=== PATIENT | female | born 1985 | race Asian ===

== ENCOUNTER 2017-02-19 | Inpatient (IN) | payer OTHER ==
[2017-02-19] MEDS: ELECTROLYTE-148 SOLN 1,000 ML IV SCH ×3 (01:10→06:00)
--- NOTE | 2017-02-19 01:38 | HP ---
Past Medical History - Admission Chief Complaint: Labor pain History of Present Illness: 31 yo @ 40 weeks gestation, EDC 02/19/17, presents c/o labor pain. She denies any vaginal bleeding nor ROM. History Source: Patient Limitations to Obtaining History: No Limitations - Past Medical History ...: 2 ...Para: 1 ...EDC by Sono: 02/19/17 - Past Surgical History Past Surgical History: Yes: None Hx Myomectomy: No Hx Transabdominal Cerclage: No - Alcohol/Substance Use Hx Alcohol Use: No History of Substance Use: reports: None - Social History Usual Living Arrangement: Yes: With Spouse Home Medications - Allergies Allergies/Adverse Reactions: Allergies Allergy/AdvReac Type Severity Reaction Status Date / Time No Known Allergies Allergy Verified 02/19/17 00:52 - Home Medications Home Medications: Ambulatory Orders Vitamins (Sjr) - 1 tab PO DAILY 02/19/17 Family Disease History - Family Disease History Family History: Unremarkable Review of Systems - Review of Systems Constitutional: reports: No Symptoms Eyes: reports: No Symptoms HENT: reports: No Symptoms Neck: reports: No Symptoms Cardiovascular: reports: No Symptoms Respiratory: reports: No Symptoms Gastrointestinal: reports: No Symptoms Genitourinary: reports: Pain Breasts: reports: No Symptoms Reported Musculoskeletal: reports: No Symptoms Integumentary: reports: No Symptoms Neurological: reports: No Symptoms Endocrine: reports: No Symptoms Hematology/Lymphatic: reports: No Symptoms Pain Intensity: 7 Physical Exam - Maternity Constitutional: Yes: Well Nourished Eyes: Yes: Conjunctiva Clear HENT: Yes: Atraumatic Neck: Yes: Supple Cardiovascular: Yes: Regular Rate and Rhythm Lungs: Clear to auscultation Breast(s): Yes: WNL - Abdominal Exam/OB Number of Fetuses: Single Presentation: Vertex Contractions: Yes Regularity: Irregular Intensity: Moderate - Vaginal Exam/OB Vaginal Bleediing: No Dilatation (cm): 5 Effacement (%): 90 Amniotic Membrane Status: Intact Station: -1 - Physical Exam ...Motor Strength: WNL Psychiatric: Yes: Alert, Oriented Problem List - Problems (1) Pain during labor Code(s): O99.89 - OTH DISEASES AND CONDITIONS COMPL PREG/CHLDBRTH; R52 - PAIN, UNSPECIFIED Assessment/Plan Active labor Admit to L&D Analgesia as needed Anticipate
[2017-02-19] MEDS ORDERED: OXYTOCIN 15 UNITS/ LR 250 ML 15 UNIT/250 ML INFUS.BAG IVPB SCH (01:45)
[2017-02-19] MEDS ORDERED: AMPICILLIN - 2 GM in SODIUM CHLORIDE 100 ML IVPB ONE (01:45)
[2017-02-19 01:52] LABS: BASO % 0.4 % (0-2.0); EOS % 0.6 % (0-4.5); HEMATOCRIT 36.5 % (32.4-45.2); HEMOGLOBIN 11.9 GM/dL (10.7-15.3); LYMPH % 18.9 % (8-40); MCH 27.7 pg (25.7-33.7); MCHC 32.7 g/dl (32.0-36.0); MEAN CELL VOLUME 84.6 fl (80-96); MEAN PLT VOLUME 9.9 fl (7.5-11.1); MONO % 6.6 % (3.8-10.2); NEUT % 73.5 % (42.8-82.8); PLATELET COUNT 177 K/MM3 (134-434); RBC 4.32 M/mm3 (3.60-5.2); RDW 15.6 % (11.6-15.6); WHITE BLOOD COUNT 10.7 K/mm3 (4.0-10.0)
[2017-02-19 02:05] LABS: INR 0.86 (0.82-1.09); PROTHROMBIN TIME (PATIENT) 9.7 SEC (9.98-11.88)
[2017-02-19 02:08] LABS: ACTIVATED PTT 24.1 SECONDS (26.9-34.4)
[2017-02-19 02:11] LABS: ANION GAP 12 (8-16); BLOOD UREA NITROGEN 11 mg/dL (7-18); CALCIUM 8.9 mg/dL (8.5-10.1); CHLORIDE 102 mmol/L (98-107); CO2 24 mmol/L (21-32); CREATININE 0.5 mg/dL (0.55-1.02); GLUCOSE,RANDOM 100 mg/dL (74-106); POTASSIUM 3.7 mmol/L (3.5-5.1); SODIUM 138 mmol/L (136-145)
[2017-02-19] MEDS ORDERED: AMPICILLIN SODIUM 2 GM VIAL ONE (02:49)
[2017-02-19 02:55] VITALS: BMI 27.6
[2017-02-19] MEDS ORDERED: BUTORPHANOL TARTRATE 1 MG/ML VIAL ONE (03:13)
[2017-02-19] MEDS ORDERED: PROMETHAZINE HCL 25 MG/1 ML VIAL ONE (03:13)
[2017-02-19] MEDS ORDERED: BUTORPHANOL TARTRATE 1 MG/ML VIAL IVPB ONE (03:15)
[2017-02-19] MEDS ORDERED: PROMETHAZINE HCL 25 MG/1 ML VIAL IVPB ONE (03:15)
[2017-02-19] MEDS ORDERED: FENTANYL/BUPIVACAINE/NS/PF - PCEA - 50 ML DISP.SYRIN EP ONE (03:45)
[2017-02-19] MEDS ORDERED: NALOXONE HCL 0.4 MG/ML VIAL IVPUSH PRN (04:14)
[2017-02-19] MEDS ORDERED: FENTANYL/BUPIVACAINE/NS/PF - PCEA - 50 ML DISP.SYRIN EP SCH (04:15)
[2017-02-19] MEDS ORDERED: AMPICILLIN SODIUM 1 GM VIAL ONE ×2 (05:35→08:43)
[2017-02-19] MEDS: AMPICILLIN - 1 GM in SODIUM CHLORIDE 100 ML IVPB SCH ×2 (05:45→08:45)
[2017-02-19] MEDS ORDERED: OXYTOCIN 20 UNITS in 0.9% NS 20 UNIT/1,000 ML INFUS.BAG IV ONE ×2 (06:40→10:07)
[2017-02-19] MEDS ORDERED: LIDOCAINE HCL 1% PRESERVATIVE FREE - 30ML VIAL ONE (06:40)
[2017-02-19] MEDS ORDERED: ACETAMINOPHEN 325 MG TABLET (FP) PO PRN (09:10)
[2017-02-19] MEDS ORDERED: WITCH HAZEL 50% (TUCKS) 40 PAD/JAR PAD TP PRN (09:10)
[2017-02-19] MEDS ORDERED: IBUPROFEN 600 MG TABLET (FP) PO PRN (09:10)
[2017-02-19] MEDS ORDERED: BENZOCAINE 28 GM HEMORRHOIDAL OINTMENT TP PRN (09:10)
[2017-02-19] MEDS ORDERED: BENZOCAINE 20% 57 GM BOTTLE TP PRN (09:10)
[2017-02-19] MEDS ORDERED: BISACODYL 10 MG SUPP.RECT RC PRN (09:10)
[2017-02-19] MEDS ORDERED: METHYLERGONOVINE MALEATE 0.2 MG/1 ML AMP IM PRN (09:10)
--- NOTE | 2017-02-19 09:13 | PN ---
Delivery - Delivery Vaginal Delivery: Spontaneous Type of Anesthesia: Epidural Episiotomy/Laceration: 1st degree EBL (cc): 300 Delivery, Single - [place] Feeding Plan Initial Plan: Elected not to breastfeed exclusively throughout hospitalization Remarks - Remarks Remarks: Normal spontaneous vaginal delivery of a live infant over first degree laceration. Nose / Oropharynx suctioned @ perineum. Cord clamped and cut. Placenta expelled spontaneously intact. Laceration repaired with 2.0 Biosyn.
[2017-02-19] MEDS ORDERED: OXYTOCIN 20 UNITS in 0.9% NS 20 UNIT/1,000 ML INFUS.BAG IV SCH (09:15)
[2017-02-19] MEDS: PRENATAL VITAMINS W/ FOLIC ACID TABLET (FP) PO SCH (11:23)
[2017-02-19] MEDS: FERROUS SO4 325 MG TABLET (FP) PO SCH ×2 (11:56→17:11)
--- NOTE | 2017-02-20 06:23 | PN ---
Post Note - Post Date of Delivery: 02/19/17 Vital Signs: Vital Signs - 24 hr 02/19/17 02/19/17 02/19/17 06:30 06:45 07:00 Temperature Pulse Rate 69 68 71 Respiratory 18 18 20 Rate Blood Pressure 105/71 108/65 104/61 O2 Sat by Pulse 100 Oximetry (%) 02/19/17 02/19/17 02/19/17 08:00 09:15 09:30 Temperature 98.0 F Pulse Rate 78 79 75 Respiratory 20 20 20 Rate Blood Pressure 121/74 103/48 99/56 O2 Sat by Pulse Oximetry (%) 02/19/17 02/19/17 02/19/17 09:45 10:00 10:45 Temperature 98.2 F 99 F Pulse Rate 89 78 72 Respiratory 20 79 H 18 Rate Blood Pressure 100/47 100/52 105/56 O2 Sat by Pulse Oximetry (%) 02/19/17 02/19/17 02/19/17 14:00 17:14 22:00 Temperature 98.7 F 97.9 F 97.9 F Pulse Rate 85 86 83 Respiratory 18 20 20 Rate Blood Pressure 95/48 103/56 90/50 O2 Sat by Pulse Oximetry (%) 02/20/17 02:00 Temperature 97.7 F Pulse Rate 77 Respiratory 20 Rate Blood Pressure 92/50 O2 Sat by Pulse Oximetry (%) - Subjective Subjective: No Complaints - Objective Afebrile: No Breast: Not engorged Abdomen: Soft, Non-tender Uterus: Fundus firm, Non-tender Vagina: Scant lochia Extremities: Non-tender - Assessment/Plan (1) (normal spontaneous vaginal delivery) Assessment: S/P Normal Plan: Routine Care
[2017-02-20] MEDS: FERROUS SO4 325 MG TABLET (FP) PO SCH ×3 (08:39→16:50)
[2017-02-20 09:16] LABS: BASO % 0.3 % (0-2.0); EOS % 0.7 % (0-4.5); HEMATOCRIT 34.1 % (32.4-45.2); HEMOGLOBIN 10.7 GM/dL (10.7-15.3); LYMPH % 24.3 % (8-40); MCH 26.7 pg (25.7-33.7); MCHC 31.3 g/dl (32.0-36.0); MEAN CELL VOLUME 85.5 fl (80-96); MEAN PLT VOLUME 9.3 fl (7.5-11.1); MONO % 5.4 % (3.8-10.2); NEUT % 69.3 % (42.8-82.8); PLATELET COUNT 159 K/MM3 (134-434); RBC 3.99 M/mm3 (3.60-5.2); RDW 15.6 % (11.6-15.6); WHITE BLOOD COUNT 12.1 K/mm3 (4.0-10.0)
[2017-02-20] MEDS: PRENATAL VITAMINS W/ FOLIC ACID TABLET (FP) PO SCH (09:49)
[2017-02-20] MEDS ORDERED: DIPHTH,PERTUSS(ACELL),TET 0.5 ML DISP.SYRIN IM ONE (11:50)
[2017-02-20] MEDS ORDERED: SENNOSIDES/DOCUSATE COMBO (SENNA PLUS) TABLET (UD) PO PRN (22:00)
--- NOTE | 2017-02-21 01:07 | DS ---
Physical Exam-[facility] Vital Signs: Vital Signs Temperature 97.4 F L 02/20/17 09:13 Pulse Rate 82 02/20/17 09:13 Respiratory Rate 20 02/20/17 09:13 Blood Pressure 101/66 02/20/17 09:13 O2 Sat by Pulse Oximetry (%) 100 02/19/17 07:00 Constitutional: Yes: Well Nourished Eyes: Yes: Conjunctiva Clear HENT: Yes: Atraumatic Neck: Yes: Supple Cardiovascular: Yes: Regular Rate and Rhythm Respiratory: Yes: Regular Gastrointestinal: Yes: Normal Bowel Sounds Pelvis: Yes: WNL Vaginal Exam: Yes: Bleeding Cervix: Yes: Bleeding Uterus: Yes: Firm ....Post : Yes: Uterus firm, Moderate lochia serosa Breast(s): Yes: WNL Musculoskeletal: Yes: WNL Extremities: Yes: WNL Wound/Incision: Yes: Well Approximated Neurological: Yes: Alert, Oriented ...Motor Strength: WNL Psychiatric: Yes: Alert, Oriented Labs: CBC, BMP 02/20/17 08:30 02/19/17 01:30 Delivery - Delivery Vaginal Delivery: Spontaneous Type of Anesthesia: Epidural Episiotomy/Laceration: 1st degree EBL (cc): 300 Delivery, Single - Stages of Labor Date 1st Stage Initiatied: 02/18/17 Time 1st Stage Initiated: 22:00 Date 2nd Stage Initiated: 02/19/17 Time 2nd Stage Initiated: 06:30 Date of Delivery: 02/19/17 Time of Delivery: 08:57 Time Placenta Delivered: 09:05 - 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 Present: No Infant Gender: Female Weight: 6 lb 9 oz Position: Left, OA Total Hours ROM (Hrs/Mins): 2hrs.27min - 1 Minute Total Score: 9 5 Minutes Total Score: 9 - Feeding Plan Initial Plan: Elected not to breastfeed exclusively throughout hospitalization Discharge Summary Reason For Visit: LABOR Current Active Problems (normal spontaneous vaginal delivery) (Acute) Pain during labor (Acute) Procedures: Principal: Normal spontaneous vaginal delivery Hospital Course: Routine care Condition: Good - Instructions Diet, Activity, Other Instructions: Regular diet No douching, no sexual intercourse x 6 weeks F/U with MD in 6 weeks Disposition: HOME - Home Medications Comprehensive Discharge Medication List: Ambulatory Orders Vitamins ([facility]) - 1 tab PO DAILY 02/19/17
[2017-02-21] MEDS: FERROUS SO4 325 MG TABLET (FP) PO SCH (08:44)
[2017-02-21] MEDS: PRENATAL VITAMINS W/ FOLIC ACID TABLET (FP) PO SCH (09:35)
[2017-02-21 10:46] VITALS: BP 115/77; PULSE 82; TEMP 98.1
== END 2017-02-21 10:10 | disposition home or self-care (01) | DRG 560 ==
LOC: JDEL → JLDR 01:00 → J3W 10:41
PROVIDERS: ADMIT Obstetrics & Gynecology; ATTEND Obstetrics & Gynecology
PROC: 10E0XZZ Delivery of Products of Conception, External Approach (ICD-10-PCS; principal; 2017-02-19)
PROC: 0HQ9XZZ Repair Perineum Skin, External Approach (ICD-10-PCS; 2017-02-19)
PROC: 0W8NXZZ Division of Female Perineum, External Approach (ICD-10-PCS; 2017-02-19)
DX: O70.0 First degree perineal laceration during delivery (principal); Z3A.40 40 weeks gestation of pregnancy; Z37.0 Single live birth
CPT/HCPCS: 36415; 59409; 71046-TC; 80048; 85025; 85610; 85730; 86593; 86850; 86900; 86901; 90715

== ENCOUNTER 2018-06-10 14:29 | Emergency (ER) | payer OTHER ==
--- NOTE | 2018-06-10 14:30 | PDOC ---
History of Present Illness - General Chief Complaint: Pain Stated Complaint: NECK PAIN Time Seen by Provider: 06/10/18 14:30 History Source: Patient Exam Limitations: No Limitations - History of Present Illness Initial Comments: 33 yo F no significant PMH presents with R-sided neck pain. She states it started after she had her first child. She notes that it is worse with raising her R arm overhead. Denies numbness, weakness. Pain is sharp, but not shock- like. She has been evaluated by an orthopedic surgeon in the past, who recommended PT, which she was unable to do, as she was uninsured at the time. She denies any recent injury. Periodically her notices swelling in her neck when he massages it. Past History - Past Medical History Allergies/Adverse Reactions: Allergies Allergy/AdvReac Type Severity Reaction Status Date / Time No Known Allergies Allergy Verified 02/19/17 00:52 Asthma: No Cancer: No Cardiac Disorders: No Diabetes: No HTN: No Seizures: No Thyroid Disease: No - Suicide/Smoking/Psychosocial Hx Smoking History: Never smoked Hx Alcohol Use: No Drug/Substance Use Hx: No Hx Substance Use Treatment: No Review of Systems - Review of Systems Able to Perform ROS?: Yes Comments:: GENERAL/CONSTITUTIONAL: No fever or chills. No weakness. HEAD, EYES, EARS, NOSE AND THROAT: No change in vision. No ear pain or discharge. No sore throat. CARDIOVASCULAR: No chest pain or shortness of breath. RESPIRATORY: No cough, wheezing, or hemoptysis. GASTROINTESTINAL: No nausea, vomiting, diarrhea or constipation. GENITOURINARY: No dysuria, frequency, or change in urination. MUSCULOSKELETAL: No back pain. +Neck pain. +R shoulder pain. SKIN: No rash. NEUROLOGIC: No headache, vertigo, loss of consciousness, or change in strength/ sensation. ENDOCRINE: No increased thirst. No abnormal weight change. HEMATOLOGIC/LYMPHATIC: No anemia, easy bleeding, or history of blood clots. ALLERGIC/IMMUNOLOGIC: No hives or skin allergy. *Physical Exam - Physical Exam Comments: GENERAL: Awake, alert, and fully oriented, in no acute distress HEAD: No signs of trauma EYES: PERRLA, EOMI, sclera anicteric, conjunctiva clear ENT: Auricles normal inspection, hearing grossly normal, nares patent, oropharynx clear without exudates. Moist mucosa NECK: Normal ROM, supple, no lymphadenopathy, JVD, or masses LUNGS: Breath sounds equal, clear to auscultation bilaterally. No wheezes, and no crackles HEART: Regular rate and rhythm, normal S1 and S2, no murmurs, rubs or gallops ABDOMEN: Soft, nontender, normoactive bowel sounds. No guarding, no rebound. No masses EXTREMITIES: Normal range of motion, no edema. No clubbing or cyanosis. No cords, erythema, or tenderness NEUROLOGICAL: Cranial nerves II through XII grossly intact. Normal speech, normal gait. Motor and sensation intact SKIN: Warm, Dry, normal turgor, no rashes or lesions noted. SPINE: +Midline tenderness C5-7. +R sided cervical paraspinal soft tissue tenderness. No masses palpated. Medical Decision Making - Medical Decision Making 06/10/18 14:45 Suspect this is muscle pain. Based on the distribution of the pain, it does not appear to be shoulder impingement. The pain localizes to center of spine, R paraspinal area, and into the R trapezius muscle. Will obtain XR, then likely will give NSAID and muscle relaxer to be used as needed. Ortho f/u. *DC/Admit/Observation/Transfer Diagnosis at time of Disposition: Neck pain - Discharge Dispostion Disposition: HOME Condition at time of disposition: Stable Decision to Admit order: No - Referrals Referrals: Clint Johnson MD [Staff Physician] - - Patient Instructions Printed Discharge Instructions: DI for Neck Pain - Post Discharge Activity
[2018-06-10 14:36] VITALS: BP 120/67; PULSE 80; TEMP 99; BMI 23.8
== END 2018-06-10 15:50 | disposition home or self-care (01) ==
LOC: FER 14:29
DX: M54.2 Cervicalgia (principal)
CPT/HCPCS: 72050-TC-FY; 84703; 99283-25

== ENCOUNTER 2018-10-11 14:53 | Emergency (ER) | payer OTHER ==
[2018-10-11 15:00] VITALS: BP 98/63; PULSE 71; TEMP 97.9; BMI 23.7
--- NOTE | 2018-10-11 15:11 | PDOC ---
History of Present Illness - General Chief Complaint: Back Pain Stated Complaint: LEFT SIDED BACK PAIN Time Seen by Provider: 10/11/18 15:11 - History of Present Illness Initial Comments: 10/11/18 15:28 33 year old woman with no pmhx who presents with L sided low back pain that onset yesterday evening after she was bending down to give her son a bath. She reports that this morning she took one of her husbands pain medications for his neck pain and she felt much better until the pain come back prior to arrival. The patient reports the pain travels into her upper buttocks and L thigh. She denies spine pain, dysuria, hematuria, retention or incontinence, diarrhea or constipation. LNMP: 10/03/18 ROS GENERAL/CONSTITUTIONAL: No fever or chills. No weakness. HEAD, EYES, EARS, NOSE AND THROAT: No change in vision. No ear pain or discharge. No sore throat. CARDIOVASCULAR: No chest pain or shortness of breath RESPIRATORY: No cough, wheezing, or hemoptysis. GASTROINTESTINAL: No nausea, vomiting, diarrhea or constipation. GENITOURINARY: No dysuria, frequency, or change in urination. MUSCULOSKELETAL: No joint or muscle swelling or pain. No neck or back pain. SKIN: No rash NEUROLOGIC: No headache, vertigo, loss of consciousness, or change in strength/ sensation. PE GENERAL: Awake, alert, and fully oriented, in no acute distress HEAD: No signs of trauma, normocephalic, atraumatic EYES: PERRLA, EOMI, sclera anicteric, conjunctiva clear ENT: oropharynx clear without exudates. Moist mucosa NECK: Normal ROM, supple LUNGS: No distress, speaks full sentences, clear to auscultation bilaterally HEART: Regular rate and rhythm, normal S1 and S2, no murmurs, rubs or gallops, peripheral pulses normal and equal bilaterally. ABDOMEN: Soft, nontender, normoactive bowel sounds. No guarding, no rebound. No masses BACK: L paraspinal tenderness to palpation, pain reproducible on bending forward EXTREMITIES : Normal inspection, Normal range of motion, no edema. No clubbing or cyanosis. NEUROLOGICAL: Cranial nerves II through XII grossly intact. Normal speech, no focal sensorimotor deficits SKIN: Warm, Dry, normal turgor, no rashes or lesions noted MDM DDX including but not limited to: msk less likely pyelo vs nephrolithiasis W/U: - TX: - Motrin ED Course: negative poc preg Patient stable for discharge. Informed of all lab and imaging results. Given follow up instructions and strict return precautions. Patient expressed understanding and agree to plan. Nocturnist Physician #: Aisha Dowling, PGY2 Emergency Medicine Past History - Past Medical History Allergies/Adverse Reactions: Allergies Allergy/AdvReac Type Severity Reaction Status Date / Time No Known Allergies Allergy Verified 10/11/18 14:54 Home Medications: Ambulatory Orders Ibuprofen [Motrin -] 600 mg PO QID #16 tablet 10/11/18 Asthma: No Cancer: No Cardiac Disorders: No COPD: No Diabetes: No HTN: No Seizures: No Thyroid Disease: No Other medical history: DENIES - Suicide/Smoking/Psychosocial Hx Smoking History: Never smoked Have you smoked in the past 12 months: No Information on smoking cessation initiated: No Hx Alcohol Use: No Drug/Substance Use Hx: No Hx Substance Use Treatment: No *Physical Exam - Vital Signs Last Vital Signs Temp Pulse Resp BP Pulse Ox 97.9 F 71 18 98/63 99 10/11/18 14:53 10/11/18 14:53 10/11/18 14:53 10/11/18 14:53 10/11/18 14:53 *DC/Admit/Observation/Transfer Diagnosis at time of Disposition: Muscle strain - Discharge Dispostion Disposition: HOME Condition at time of disposition: Stable Decision to Admit order: No - Referrals Referrals: [facility] [place] [facility] [place] [Provider Group] - Patient Instructions Printed Discharge Instructions: DI for Muscle Strain Additional Instructions: You were seen in the ED for low back pain. You improved with pain medicine You have a referral for the Internal Medicine Clinic. Please follow up within 1 week. You have a prescription for Motrin to be taken every 6 hours as needed. Return to the ED if you experience worsening back pain, urinary retention, burning or blood in the urine, diarrhea or constipation. - Post Discharge Activity
--- NOTE | 2018-10-11 15:23 | PDOC ---
Attending Attestation - Resident Resident Name: Efren Dowlingie - ED Attending Attestation I have performed the following: I have examined & evaluated the patient, The case was reviewed & discussed with the resident, I agree w/resident's findings & plan, Exceptions are as noted - HPI HPI: 10/11/18 15:20 33y F no pmhx presenst with back pain after standing up while standig up from a bent psoition while giving her child a bath. Pain is in the left lower back and occasionally radiate down her left leg. pt michelle any fever/chills, numbness/ tingling/weakness. Pt denies hematuria, dysuria, diarrhea, cp, sob. no prior history of back pain. GENERAL: The patient is awake, alert, and fully oriented, Nontoxic - in no acute distress. HEAD: Normocephalic, atraumatic. NECK: Normal range of motion, supple BACK: no focal tenderness on throacic/lumbar back, no rashes noted ABDOMEN: Soft, nontender, No guarding, no rebound. No CVA tenderness EXTREMITIES: Normal range of motion, no edema. NEUROLOGICAL: No facial assymetry, Normal speech, normal gait. PSYCH: Normal mood, normal affect. SKIN: Warm, Dry, normal turgor, suspect msk pain, reproducible by position supportive care nincluding motrin/rest/heat no signs of cord compression return precautions were discussed - Physicial Exam PE: 10/14/18 09:27 see above - Medical Decision Making 10/14/18 09:27 see above
[2018-10-11] MEDS ORDERED: IBUPROFEN 400 MG TABLET (FP) PO ONE ×2 (15:28→15:36)
== END 2018-10-11 16:04 | disposition home or self-care (01) ==
LOC: FER 14:53
DX: S39.012A Strain of muscle, fascia and tendon of lower back, initial encounter (principal); X58.XXXA Exposure to other specified factors, initial encounter; Y93.89 Activity, other specified; Y92.002 Bathroom of unspecified non-institutional (private) residence as the place of occurrence of the external cause
CPT/HCPCS: 81025; 99282-25

== ENCOUNTER 2018-11-12 18:09 | Emergency (ER) | payer OTHER ==
[2018-11-12 18:12] VITALS: BMI 23.8
--- NOTE | 2018-11-12 18:15 | PDOC ---
History of Present Illness - General Chief Complaint: Headache Stated Complaint: HEADACHE Past History - Past Medical History Allergies/Adverse Reactions: Allergies Allergy/AdvReac Type Severity Reaction Status Date / Time No Known Allergies Allergy Verified 11/12/18 18:10 Home Medications: Ambulatory Orders NK [No Known Home Medication] 11/12/18 Asthma: No Cancer: No Cardiac Disorders: No COPD: No Diabetes: No HTN: No Seizures: No Thyroid Disease: No - Psycho Social/Smoking Cessation Hx Smoking History: Never smoked Have you smoked in the past 12 months: No Hx Alcohol Use: No Drug/Substance Use Hx: No Hx Substance Use Treatment: No *Physical Exam - Vital Signs Last Vital Signs Temp Pulse Resp BP Pulse Ox 0/0 L 11/12/18 18:10 Discharge - Discharge Information Condition: Stable - Follow up/Referral Referrals: Dejan Gomez MD [Primary Care Provider] - - Patient Discharge Instructions - Post Discharge Activity
[2018-11-12] MEDS ORDERED: ACETAMINOPHEN 325 MG TABLET (FP) PO ONE (18:16)
[2018-11-12] MEDS ORDERED: SODIUM CHLORIDE 0.9% 500 ML INFUS.BAG IV ONE (18:16)
[2018-11-12] MEDS ORDERED: METOCLOPRAMIDE HCL INJECTION 10 MG/2 ML VIAL IVPUSH ONE (18:16)
[2018-11-12] MEDS ORDERED: ACETAMINOPHEN 325 MG TABLET (FP) ONE (18:32)
[2018-11-12] MEDS ORDERED: METOCLOPRAMIDE HCL INJECTION 10 MG/2 ML VIAL ONE (18:35)
[2018-11-12 18:40] VITALS: BP 122/83; PULSE 87; TEMP 98.3
[2018-11-12 18:41] LABS: BASO % 0.5 % (0-2.0); EOS % 1.4 % (0-4.5); HEMATOCRIT 38.1 % (32.4-45.2); HEMOGLOBIN 12.1 GM/dl (10.7-15.3); LYMPH % 33.1 % (8-40); MCH 26.4 pg (25.7-33.7); MCHC 31.9 g/dl (32.0-36.0); MEAN CELL VOLUME 82.8 fl (80-96); MEAN PLT VOLUME 8.3 fl (7.5-11.1); MONO % 6.8 % (3.8-10.2); NEUT % 58.2 % (42.8-82.8); PLATELET COUNT 252 K/MM3 (134-434); RDW 13.7 % (11.6-15.6); WHITE BLOOD COUNT 8.1 K/mm3 (4.0-10.8)
[2018-11-12 19:03] LABS: ALBUMIN 4.2 g/dl (3.4-5.0); BILIRUBIN,TOTAL 0.5 mg/dl (0.2-1); CALCIUM 9.1 mg/dl (8.5-10); CREATININE 0.6 mg/dl (0.55-1.3); POTASSIUM 3.8 mmol/L (3.5-5.1); TOT PROT 7.7 g/dl (6.4-8.2)
[2018-11-12] MEDS ORDERED: KETOROLAC TROMETHAMINE 30 MG/1 ML VIAL IVPUSH ONE (19:19)
[2018-11-12] MEDS ORDERED: KETOROLAC TROMETHAMINE 30 MG/1 ML VIAL ONE (19:25)
--- NOTE | 2018-11-12 19:26 | PDOC ---
Documentation entered by Evette Lopez SCRIBE, acting as scribe for Natalie Mo MD. Natalie Mo MD: This documentation has been prepared by the rebecaibe, Evette Lopez SCRIBE, under my direction and personally reviewed by me in its entirety. I confirm that the documentation accurately reflects all work , treatment, procedures, and medical decision making performed by me. History of Present Illness - General Chief Complaint: Headache Stated Complaint: HEADACHE Time Seen by Provider: 11/12/18 18:27 History Source: Patient Exam Limitations: No Limitations - History of Present Illness Initial Comments: 11/12/18 19:24 The patient is a 33-year-old female who presents to the emergency department with a headache. The patient presents with 4 days of headache localized to the top of her head, associated with nausea, neck pain, and facial pressure. The patient reports prior to the symptom presentation, she was upset about personal matters and had been crying for an extended period. The patient reports taking Tylenol for the pain without relief. Denies prior hx of HAs. PAST MEDICAL HISTORY: no significant history PAST SURGICAL HISTORY: no significant history FAMILY HISTORY: no pertinent history SOCIAL HISTORY: Pt lives with family and is employed. MEDICATIONS: reviewed ALLERGIES: As per nursing notes PCP: Dr. Gomez ROS: General: No fevers or chills, no weakness, no weight loss HEENT: +sinus pressure. No change in vision. No sore throat,. No ear pain Neck: +neck pain. CardioVascular: No chest pain or shortness of breath Respiratory:No cough, or wheezing. Gastrointestinal: +nausea. no vomiting, diarrhea or constipation, No rectal bleeding Genitourinary: No dysuria, hematuria, or frequency Musculoskeletal: No joint or muscle pain or swelling Neurologic: +headache. No vertigo, dizziness or loss of consciousness Psychiatric: nor depression Skin: No rashes or easy bruising Endocrine: no increased thirst or abnormal weight change Allergic: no skin or latex allergy All other systems reviewed and normal PE GENERAL: The patient is awake, alert, and fully oriented, in no acute distress. HEAD: Normal with no signs of trauma. EYES: Pupils equal, round and reactive to light, extraocular movements intact, sclera anicteric, conjunctiva clear. NECK: +no meningismus sign, no pain with palpation of the sinuses. EXTREMITIES: Normal range of motion, no edema. NEURO: Alert and oriented x3, nonfocal exam, grossly intact, normal gait PSYCH: Normal mood, normal affect. SKIN: Warm, Dry, normal turgor, no rashes or lesions noted. MDM: This is a 33-year-old female who comes in complaining of a headache. Patient has had a headache for 4 days and is taken Tylenol for the headache without relief. Patient otherwise says she has had a lot of stress in her life and the headache began after she had a big emotional upset that caused her to cry for a long time. Patient otherwise denies any fevers, chills, neurological complaints. Patient is complaining of some nausea for which she was given Reglan prior to my seeing the patient. By the time I saw the patient she was feeling better. Work-up was initiated including CBC comp and a urine test Patient given IV fluids, Reglan, Benadryl and Tylenol and Toradol. 11/12/18 19:43 Reevaluation patient feels much better and discharged home with family. Past History - Past Medical History Allergies/Adverse Reactions: Allergies Allergy/AdvReac Type Severity Reaction Status Date / Time No Known Allergies Allergy Verified 11/12/18 18:10 Home Medications: Ambulatory Orders Metoclopramide HCl [Reglan] 10 mg PO TID PRN #12 tablet 11/12/18 Naproxen [Naprosyn] 500 mg PO BID #20 tablet 11/12/18 Asthma: No Cancer: No Cardiac Disorders: No COPD: No Diabetes: No HTN: No Seizures: No Thyroid Disease: No - Psycho Social/Smoking Cessation Hx Smoking History: Never smoked Have you smoked in the past 12 months: No Hx Alcohol Use: No Drug/Substance Use Hx: No Hx Substance Use Treatment: No *Physical Exam - Vital Signs Last Vital Signs Temp Pulse Resp BP Pulse Ox 98.3 F 87 16 122/83 100 11/12/18 18:10 11/12/18 18:10 11/12/18 18:10 11/12/18 18:10 11/12/18 18:10 ED Treatment Course - LABORATORY CBC & Chemistry Diagram: 11/12/18 18:26 11/12/18 18:26 - ADDITIONAL ORDERS Additional order review: Laboratory Results 11/12/18 11/12/18 18:26 18:24 Sodium 137 Potassium 3.8 Chloride 101 Carbon Dioxide 25 Anion Gap 11 BUN 14.0 Creatinine 0.6 Est GFR (CKD-EPI)AfAm 139.78 Est GFR (CKD-EPI)NonAf 120.61 Random Glucose 97 Calcium 9.1 Total Bilirubin 0.5 AST 17 ALT 15 Alkaline Phosphatase 68 Total Protein 7.7 Albumin 4.2 Urine HCG, Qual Negative 11/12/18 18:26 RBC 4.60 MCV 82.8 MCHC 31.9 L RDW 13.7 MPV 8.3 Neutrophils % 58.2 Lymphocytes % 33.1 Monocytes % 6.8 Eosinophils % 1.4 Basophils % 0.5 - Medications Given in the ED: ED Medications Discontinued Medications Generic Name Dose Route Start Last Admin Trade Name Freq PRN Reason Stop Dose Admin Acetaminophen 975 mg 11/12/18 18:16 11/12/18 18:39 Tylenol - PO 11/12/18 18:17 975 mg ONCE ONE Administration Diphenhydramine HCl 25 mg 11/12/18 18:16 11/12/18 19:06 Benadryl Injection - IVPUSH 11/12/18 18:17 25 mg ONCE ONE Administration Metoclopramide HCl 10 mg 11/12/18 18:16 11/12/18 19:06 Reglan Injection - IVPUSH 11/12/18 18:17 10 mg ONCE ONE Administration Sodium Chloride 1,000 ml 11/12/18 18:16 11/12/18 19:06 Normal Saline - IV 11/12/18 18:17 1,000 ml ONCE ONE Administration Discharge - Discharge Information Problems reviewed: Yes Clinical Impression/Diagnosis: Tension type headache Qualifiers: Headache chronicity pattern: acute headache Intractability: not intractable Qualified Code(s): G44.209 - Tension-type headache, unspecified, not intractable Condition: Stable Disposition: HOME - Admission No - Additional Discharge Information Prescriptions: Metoclopramide HCl [Reglan] 10 mg PO TID PRN #12 tablet PRN Reason: Nausea Naproxen [Naprosyn] 500 mg PO BID #20 tablet - Follow up/Referral Referrals: Dejan Gomez MD [Primary Care Provider] - - Patient Discharge Instructions Additional Instructions: If you have any further headaches you can take naproxen 1 tablet as often as twice a day. For nausea take Reglan 1 tablet as often as 3 times a day if needed. I have sent prescriptions to your pharmacy for both of the medications. In addition to medication for your tension type headaches follow-up with your doctor and implement some stress management relaxation techniques to help manage your stress. Return to the emergency department immediately with ANY new, persistent or worsening symptoms. Continue any medications as previously prescribed by your physician. You should follow up with your primary doctor as soon as possible regarding today's emergency department visit. . Please make sure your doctor reviews the results of your emergency evaluation. Thank you for coming to the Emergency Department today for your care. It was a pleasure to see you today. Please note that your evaluation is INCOMPLETE until you follow-up with your doctor. - Post Discharge Activity
--- NOTE | 2018-11-13 15:05 | EKG ---
Test Reason : Blood Pressure : / mmHG Vent. Rate : 080 BPM Atrial Rate : 080 BPM P-R Int : 136 ms QRS Dur : 070 ms QT Int : 406 ms P-R-T Axes : 059 072 047 degrees QTc Int : 468 ms NORMAL SINUS RHYTHM NORMAL ECG NO PREVIOUS ECGS AVAILABLE Confirmed by WILFREDO LOPEZ, BROCK ([id number]) on 11/13/2018 3:04:45 PM Referred By: MD FORMAN Confirmed By:BROCK VILLALOBOS MD
== END 2018-11-12 19:53 | disposition home or self-care (01) ==
LOC: FER 18:09
PROC: 3E033GC Introduction of Other Therapeutic Substance into Peripheral Vein, Percutaneous Approach (ICD-10-PCS; principal; 2018-11-12)
PROC: 3E0333Z Introduction of Anti-inflammatory into Peripheral Vein, Percutaneous Approach (ICD-10-PCS; 2018-11-12)
PROC: 3E033GC Introduction of Other Therapeutic Substance into Peripheral Vein, Percutaneous Approach (ICD-10-PCS; 2018-11-12)
PROC: 3E0337Z Introduction of Electrolytic and Water Balance Substance into Peripheral Vein, Percutaneous Approach (ICD-10-PCS; 2018-11-12)
DX: G44.209 Tension-type headache, unspecified, not intractable (principal)
CPT/HCPCS: 36415; 80053; 84703; 85025; 93005; 99283-25